=== PATIENT | female | born 1940 | race Caucasian/White ===

== ENCOUNTER 2017-10-05 03:29 | Inpatient (IN) | payer OTHER ==
[~2017-10-05] VITALS: Ht 170.2 cm; Wt 52.9 kg
[2017-10-05 03:32] VITALS: Ht 170.2 cm; Wt 52.9 kg
[2017-10-05 05:05] LABS: PLATELET COUNT 133 x10^3mcL (130-400); RED CELL DISTRIBUTION WIDTH 13.7 % (11.5-14.5)
[2017-10-05 05:10] LABS: BASOPHIL % 0 % (0-2)
[2017-10-05 05:11] LABS: CALCIUM 8.5 mg/dL (8.5-10.1); CARBON DIOXIDE 25.4 mmol/L (21-32); CHLORIDE SERUM 103 mmol/L (98-107); CREATININE SERUM 0.8 mg/dL (0.6-1.0); GLUCOSE SERUM 175 mg/dL (74-106); POTASSIUM SERUM 4.3 mmol/L (3.5-5.1); SODIUM SERUM 137 mmol/L (136-145)
[2017-10-05 05:17] LABS: ALKALINE PHOSPHATASE 70 U/L (46-116); ALT/SGPT 33 U/L (14-59); AST/SGOT 29 U/L (15-37); BILIRUBIN TOTAL 0.92 mg/dL (0.20-1.00); TOTAL PROTEIN, SERUM 6.3 g/dL (6.4-8.2)
[2017-10-05 05:18] LABS: ALBUMIN 3.3 g/dL (3.4-5.0)
[2017-10-05 05:39] LABS: CHOLESTEROL/HDL RATIO 2.9
[2017-10-05 05:43] LABS: FREE T4 1.22 ng/dL (0.76-1.46); FREE THYROXINE INDEX 3.4 ug/dL (1.4-4.5); T4(THYROXINE) 8.6 ug/dL (4.7-13.3)
[2017-10-05 05:56] LABS: T3 TOTAL 0.67 ng/mL
[2017-10-05] MEDS ORDERED: GALANTAMINE HBR PO (09:00)
[2017-10-05] MEDS ORDERED: NAMENDA XR28 MG PO (09:01)
[2017-10-05] MEDS ORDERED: COUMADIN7.5 MG PO (09:17)
[2017-10-05] MEDS ORDERED: COUMADIN5 MG PO ×2 (09:17→13:06)
[2017-10-05] MEDS ORDERED: LEVOTHYROXINE0.1 M2 PO (09:18)
[2017-10-05 09:22] VITALS: BP 126/60
[2017-10-05 09:43] LABS: microscopic required? YES; urine erythrocyte NEGATIVE (NEGATIVE)
[2017-10-05 11:16] VITALS: BP 126/60
[2017-10-05 17:09] VITALS: BP 120/61
[2017-10-05 20:46] VITALS: BP 107/61
[2017-10-06 06:14] VITALS: BP 118/60
[2017-10-06 07:02] LABS: CALCIUM 8.2 mg/dL (8.5-10.1); CHLORIDE SERUM 108 mmol/L (98-107); CREATININE SERUM 0.6 mg/dL (0.6-1.0); GLUCOSE SERUM 99 mg/dL (74-106); PHOSPHOROUS 2.3 mg/dL (2.5-4.9); POTASSIUM SERUM 4.3 mmol/L (3.5-5.1); SODIUM SERUM 140 mmol/L (136-145)
[2017-10-06 08:28] LABS: BASOPHIL % 0.1 % (0-2); RED CELL DISTRIBUTION WIDTH 14.3 % (11.5-14.5)
[2017-10-06 08:29] LABS: PLATELET COUNT 111 x10^3mcL (130-400)
[2017-10-06 09:38] VITALS: BP 100/53
[2017-10-06 13:45] VITALS: BP 107/60
[2017-10-06 17:20] VITALS: BP 103/60
[2017-10-06 22:01] VITALS: BP 100/55
[2017-10-07 05:15] VITALS: BP 112/57
[2017-10-07 06:22] LABS: BASOPHIL % 0.4 % (0-2); RED CELL DISTRIBUTION WIDTH 14.1 % (11.5-14.5)
[2017-10-07 06:26] LABS: CALCIUM 7.8 mg/dL (8.5-10.1); CARBON DIOXIDE 26.5 mmol/L (21-32); CHLORIDE SERUM 110 mmol/L (98-107); CREATININE SERUM 0.5 mg/dL (0.6-1.0); GLUCOSE SERUM 95 mg/dL (74-106); MAGNESIUM 1.9 mg/dL (1.8-2.4); PHOSPHOROUS 1.8 mg/dL (2.5-4.9); POTASSIUM SERUM 3.7 mmol/L (3.5-5.1); SODIUM SERUM 142 mmol/L (136-145)
[2017-10-07 06:28] LABS: PLATELET COUNT 102 x10^3mcL (130-400)
[2017-10-07 10:17] VITALS: BP 126/57
[2017-10-07 14:25] VITALS: BP 137/69
[2017-10-07 18:03] VITALS: BP 133/79
[2017-10-07 21:15] VITALS: BP 112/57
[2017-10-08 05:21] VITALS: BP 107/58
[2017-10-08 05:54] LABS: BASOPHIL % 0.3 % (0-2); RED CELL DISTRIBUTION WIDTH 14.1 % (11.5-14.5)
[2017-10-08 06:14] LABS: CALCIUM 8.2 mg/dL (8.5-10.1); CARBON DIOXIDE 28.2 mmol/L (21-32); CHLORIDE SERUM 108 mmol/L (98-107); CREATININE SERUM 0.6 mg/dL (0.6-1.0); GLUCOSE SERUM 94 mg/dL (74-106); PLATELET COUNT 121 x10^3mcL (130-400); POTASSIUM SERUM 3.7 mmol/L (3.5-5.1); SODIUM SERUM 138 mmol/L (136-145)
[2017-10-08 09:44] VITALS: BP 123/69
[2017-10-08 17:20] VITALS: BP 146/78
[2017-10-08 20:59] VITALS: BP 100/53
[2017-10-09 05:31] VITALS: BP 117/67
[2017-10-09 09:08] VITALS: BP 101/57
[2017-10-09 17:35] VITALS: BP 98/58
[2017-10-09 19:20] VITALS: BP 114/62
[2017-10-10 05:58] VITALS: BP 105/58
[2017-10-10 06:40] LABS: CALCIUM 8.3 mg/dL (8.5-10.1); CARBON DIOXIDE 30.9 mmol/L (21-32); CHLORIDE SERUM 105 mmol/L (98-107); CREATININE SERUM 0.6 mg/dL (0.6-1.0); GLUCOSE SERUM 99 mg/dL (74-106); PHOSPHOROUS 3.6 mg/dL (2.5-4.9); SODIUM SERUM 142 mmol/L (136-145)
[2017-10-10 06:55] LABS: BASOPHIL % 0.2 % (0-2); PLATELET COUNT 168 x10^3mcL (130-400); RED CELL DISTRIBUTION WIDTH 14.2 % (11.5-14.5)
[2017-10-10 09:20] VITALS: BP 144/85
[2017-10-10 16:31] VITALS: BP 106/56
[2017-10-10 20:06] VITALS: BP 113/55
[2017-10-10] MEDS ORDERED: PROA PO (21:29)
[2017-10-10] MEDS ORDERED: ZINC SULFATE220 MG PO (21:30)
[2017-10-10] MEDS ORDERED: OSCD PO (21:30)
[2017-10-10] MEDS ORDERED: VITC PO (21:31)
[2017-10-11 05:32] VITALS: BP 107/64
[2017-10-11 06:20] VITALS: BP 107/64
[2017-10-11 06:27] LABS: BASOPHIL % 0.5 % (0-2); PLATELET COUNT 193 x10^3mcL (130-400); RED CELL DISTRIBUTION WIDTH 14.5 % (11.5-14.5)
[2017-10-11 06:39] LABS: CALCIUM 8.8 mg/dL (8.5-10.1); CARBON DIOXIDE 31.3 mmol/L (21-32); CHLORIDE SERUM 106 mmol/L (98-107); CREATININE SERUM 0.6 mg/dL (0.6-1.0); GLUCOSE SERUM 96 mg/dL (74-106); POTASSIUM SERUM 4.1 mmol/L (3.5-5.1); SODIUM SERUM 140 mmol/L (136-145)
== END 2017-10-11 07:00 | DRG 963 ==
LOC: ED 03:29 → DU 04:56 → MU 10-07 11:59
PROVIDERS: Emergency Medicine; Family Medicine
DX: S32.512A Fracture of superior rim of left pubis, initial encounter for closed fracture (principal); N17.0 Acute kidney failure with tubular necrosis; S06.9X0A Unspecified intracranial injury without loss of consciousness, initial encounter; S02.82XA Fracture of other specified skull and facial bones, left side, initial encounter for closed fracture; S02.40DA Maxillary fracture, left side, initial encounter for closed fracture; S02.40FA Zygomatic fracture, left side, initial encounter for closed fracture; S42.212A Unspecified displaced fracture of surgical neck of left humerus, initial encounter for closed fracture; D68.51 Activated protein C resistance; E44.1 Mild protein-calorie malnutrition; R73.03 Prediabetes; E83.39 Other disorders of phosphorus metabolism; E03.9 Hypothyroidism, unspecified; F01.50 Vascular dementia, unspecified severity, without behavioral disturbance, psychotic disturbance, mood disturbance, and anxiety; Z68.24 Body mass index [BMI] 24.0-24.9, adult; Z79.01 Long term (current) use of anticoagulants; Z96.1 Presence of intraocular lens; Z98.42 Cataract extraction status, left eye; Z98.41 Cataract extraction status, right eye; W10.9XXA Fall (on) (from) unspecified stairs and steps, initial encounter; Y92.009 Unspecified place in unspecified non-institutional (private) residence as the place of occurrence of the external cause; Z88.0 Allergy status to penicillin; Y93.89 Activity, other specified; Y99.8 Other external cause status; S05.12XA Contusion of eyeball and orbital tissues, left eye, initial encounter; H35.30 Unspecified macular degeneration; M43.17 Spondylolisthesis, lumbosacral region
CPT/HCPCS: 83880; 84439; 97110-GP; 97116-GP; 97530-GP; 97535-GP; J2270; J7030; J8597; Q0092